=== PATIENT | male | born 1985 | race Caucasian/White ===

== ENCOUNTER 2017-05-01 22:12 | Emergency (ER) | payer OTHER ==
[~2017-05-01 22:12] MED LIST: ALBUTEROL 0.5ML INH; ALBUTEROL17 GM INH; BACTRIM DS TABL1 TA1 PO; CLEOCIN PO; NO MEDICATIONS; PREDNISONE PO; PREDNISONE50 MG PO
== END 2017-05-02 01:05 | disposition left against medical advice (07) ==
LOC: CED 22:12
DX: Z53.21 Procedure and treatment not carried out due to patient leaving prior to being seen by health care provider (principal)